=== PATIENT | female | born 1970 | race Caucasian/White ===

== ENCOUNTER 2018-02-12 12:33 | Inpatient (IN) | payer MEDICAID ==
[2018-02-12] MEDS ORDERED: Sodium Chloride 0.9% 1,000 ML IV STA ×2 (13:33→14:51)
[2018-02-12 14:15] LABS: VENOUS BLOOD GAS BASE EXCESS 0.6 mmol/L (0.0-2.0); VENOUS BLOOD GAS PCO2 47 mmHg (40-60); VENOUS BLOOD GAS PO2 36 mm/Hg (30-55); VENOUS BLOOD PH 7.36 (7.32-7.43)
--- NOTE | 2018-02-12 14:27 | ED PDOC ---
HPI: Psych/Substance Abuse Time Seen by Provider: 02/12/18 12:55 Chief Complaint (Provider): Overdose History Per: Patient History/Exam Limitations: no limitations Onset/Duration Of Symptoms: Hrs Current Symptoms Are (Timing): Still Present Associated Symptoms: Suicidal Thoughts, Suicidal Plan Additional Complaint(s): Caterina Ramey is a 47 year old female with no past medical history was brought to ER by EMS s/p suicide attempt prior to arrival. Patient is reported to have overdosed on Phenobarbital, and she admits to cocaine use yesterday. Patient is arousable with verbal stimuli. Other medical complaints are unobtainable due to patients refusal to answer questions. PMD: [facility] Past Medical History Reviewed: Historical Data, Nursing Documentation, Vital Signs Vital Signs: Last Vital Signs Temp 97 F L 02/12/18 12:38 Pulse 90 02/12/18 13:04 Resp 14 02/12/18 13:04 BP 123/78 02/12/18 13:04 Pulse Ox 99 02/12/18 13:04 - Medical History PMH: Bipolar Disorder, Depression, Diabetes, HTN, Hypercholesterolemia, Seizures Denies: Chronic Kidney Disease - Surgical History Surgical History: No Surg Hx - Family History Family History: States: Unknown Family Hx - Social History Drugs: Cocaine - Immunization History Hx Tetanus Toxoid Vaccination: No Hx Influenza Vaccination: No Hx Pneumococcal Vaccination: No - Home Medications Home Medications: Ambulatory Orders Medication Instructions Recorded Clonazepam [Klonopin] 1 mg PO Q8 08/29/16 Insulin Lispro [Humalog (Insulin 5 unit SQ BID 08/29/16 Lispro)] QUEtiapine [SEROquel XR] 300 mg PO HS 08/29/16 Albuterol 0.083% [Albuterol 0.083% 3 ml IH Q6 PRN 02/12/18 Inhal Geovanna (2.5 mg/3 ml) UD] Albuterol HFA [Ventolin HFA 90 1 puff IH Q4 PRN 02/12/18 mcg/actuation (8 g)] Amitriptyline HCl [Amitriptyline 100 mg PO HS 02/12/18 HCl] Buprenorphine HCl/Naloxone HCl 1 film SL DAILY 02/12/18 [Suboxone 4 mg-1 mg Sl Film] Docusate [Colace] 100 mg PO Q12 02/12/18 Ergocalciferol (Vitamin D2) 50,000 unit PO QWK 02/12/18 [Vitamin D2] Losartan [Cozaar] 100 mg PO DAILY 02/12/18 Naproxen [Naprosyn] 500 mg PO Q12 PRN 02/12/18 [place]-3 Fatty Acids [[place]-3] 1 cap PO DAILY 02/12/18 Phenobarbital [PHENobarbital Tab] 32.4 mg PO Q8 02/12/18 Polyethylene Glycol 3350 [Miralax] 17 gm PO DAILY 02/12/18 Zolpidem [Ambien] 10 mg PO HS 02/12/18 traZODone [Desyrel] 50 mg PO HS 02/12/18 - Allergies Allergies/Adverse Reactions: Allergies Allergy/AdvReac Type Severity Reaction Status Date / Time latex AdvReac RASH Verified 02/12/18 12:38 Review of Systems Review Of Systems: ROS cannot be obtained secondary to pt's inabilty to answer questions. (patient refuses to answer questions) Physical Exam - Reviewed Nursing Documentation Reviewed: Yes Vital Signs Reviewed: Yes - Physical Exam Appears: Positive for: Non-toxic, No Acute Distress Head Exam: Positive for: ATRAUMATIC, NORMAL INSPECTION, NORMOCEPHALIC Skin: Positive for: Normal Color, Warm, Dry Eye Exam: Positive for: EOMI, Normal appearance, PERRL Neck: Positive for: Normal, Painless ROM, Supple Cardiovascular/Chest: Positive for: Regular Rate, Rhythm. Negative for: Murmur Respiratory: Positive for: Normal Breath Sounds. Negative for: Respiratory Distress Gastrointestinal/Abdominal: Positive for: Normal Exam, Soft. Negative for: Tenderness Back: Positive for: Normal Inspection. Negative for: L CVA Tenderness, R CVA Tenderness, Vertebral Tenderness Extremity: Positive for: Normal ROM. Negative for: Pedal Edema, Deformity Neurologic/Psych: Positive for: Alert, Oriented, Other (arousable ). Negative for: Motor/Sensory Deficits - Laboratory Results Result Diagrams: 02/12/18 22:03 02/12/18 22:03 - ECG Interpretation Of ECG: NSR @ 88, no ST-T changes. O2 Sat by Pulse Oximetry: 99 (RA) Pulse Ox Interpretation: Normal Medical Decision Making Medical Decision Making: Time: 14:05 Plan: --VBG --EKG --Acetaminophen --Alcohol Serum --CMP --Drug Screen --HCG Qualitative Serum --Salicylate --CBC --PTT --Coag --CXR --Phenobarbital lab --IV Fluids --Urinalysis Patient is arousable in ER and responsive to to verbal stimuli though is not cooperative in answering many questions. Accession No. : [id number] Patient Name / ID : CONNER RUBIO / [id number] Exam Date : 02/12/2018 13:28:18 ( Approved ) Study Comment : Sex / Age : F / 47Y Creator : Med Kong MD Dictator : Med Kong MD Heel Lift Gouger : Nca Certified Concierge : Med Kong MD Approver2 : Report Date : 02/12/2018 14:31:44 My Comment : PROCEDURE: CHEST RADIOGRAPH, 1 VIEW HISTORY: OD COMPARISON: None available. FINDINGS: LUNGS: Clear. PLEURA: No pneumothorax or pleural fluid seen. CARDIOVASCULAR: Normal. OSSEOUS STRUCTURES: No significant abnormalities. VISUALIZED UPPER ABDOMEN: Normal. OTHER FINDINGS: None. IMPRESSION: No active disease. Scribe Attestation: Documented by Malaika Cee, acting as a scribe for Chanda Redmond MD. Provider Scribe Attestation: All medical record entries made by the Scribe were at my direction and personally dictated by me. I have reviewed the chart and agree that the record accurately reflects my personal performance of the history, physical exam, medical decision making, and the department course for this patient. I have also personally directed, reviewed, and agree with the discharge instructions and disposition. Disposition - Clinical Impression Clinical Impression: Suicide attempt, Intentional phenobarbital overdose, Diabetes mellitus with hyperglycemia, UTI (urinary tract infection), Bipolar 1 disorder - Disposition Disposition: Transfer of Care Disposition Time: 15:00 Condition: STABLE Patient Signed Over To: Royal Engle
--- NOTE | 2018-02-12 14:33 | RAD ---
PROCEDURE: CHEST RADIOGRAPH, 1 VIEW HISTORY: OD COMPARISON: None available. FINDINGS: LUNGS: Clear. PLEURA: No pneumothorax or pleural fluid seen. CARDIOVASCULAR: Normal. OSSEOUS STRUCTURES: No significant abnormalities. VISUALIZED UPPER ABDOMEN: Normal. OTHER FINDINGS: None. IMPRESSION: No active disease.
[2018-02-12 14:42] LABS: BASO # 0.1 K/uL (0.0-0.2); BASO % 0.5 % (0.0-2.0); EOS # 0.5 K/uL (0.0-0.7); HEMOGLOBIN 14.8 g/dL (12.0-16.0); LYMPH # 3.3 K/uL (1.0-4.3); LYMPH % 18.3 % (20.0-40.0); MEAN CORPUSCULAR HEMOGLOBIN 32.5 pg (27.0-31.0); MEAN CORPUSCULAR HGB CONC 33.8 g/dL (33.0-37.0); MEAN PLATELET VOLUME 10.2 fl (7.2-11.7); MONO % 5.8 % (0.0-10.0); NEUT # 12.9 K/uL (1.8-7.0); NEUT % 72.4 % (50.0-75.0); RBC 4.56 Mil/uL (3.80-5.20); RED CELL DISTRIBUTION WIDTH 13.3 % (11.5-14.5); WHITE BLOOD COUNT 17.9 K/uL (4.8-10.8)
--- NOTE | 2018-02-12 14:47 | CARD ---
APPROVED REPORT EKG Measurement Heart [id number] <Conclusion> Normal sinus rhythm Possible Left atrial enlargement Borderline ECG
[2018-02-12 14:49] LABS: ALB/GLOB RATIO 0.9 (1.0-2.1); ALBUMIN 3.7 g/dL (3.5-5.0); ALT/SGPT 15 U/L (9-52); AST/SGOT 30 U/L (14-36); BLOOD UREA NITROGEN 16 mg/dl (7-17); CALCIUM 9.3 mg/dL (8.4-10.2); GFR AFRICAN-AMERICAN > 60; GFR NON-AFRICAN AMERICAN > 60
[2018-02-12 14:58] LABS: PROTHROMBIN TIME 10.6 Seconds (9.8-13.1)
[2018-02-12] MEDS ORDERED: Insulin Regular 100 units/ml IV STA ×2 (15:13→17:17)
[2018-02-12 15:19] LABS: ACETAMINOPHEN < 10.0 ug/ml (10.0-30.0); SALICYLATE < 1.0 mg/dl
--- NOTE | 2018-02-12 16:04 | ED PDOC ---
- Laboratory Results Result Diagrams: 02/12/18 22:03 02/12/18 22:03 - ECG O2 Sat by Pulse Oximetry: 99 (RA) Pulse Ox Interpretation: Normal Medical Decision Making Medical Decision Makin:00 Patient was signed out to me by Dr. Redmond pending medical clearance, reevaluation, and crisis evaluation. 16:30 Patient was evaluated by crisis evaluation, who recommended a JCMS screen. Patient is not cooperative for treatment in the ER and is actively suicidal. Will administer antipsychotic medications for acute psychosis. Patient is still pending clearance. 2053 I discussed the case as follow up with [facility] agent on case who recommends symptomatic care and no further observation needed if patient has no symptoms. Patient is currently not symptomatic for phenobarbital overdose. She does take it as RX medication. 2217 Vital signs are stable. Labs reviewed. In my opinion there are no current acute medical conditions that contraindicate the placement of this patient in a psychiatric unit. Scribe Attestation: Documented by Malaika Cee, acting as a scribe for Royal Engle MD. Provider Scribe Attestation: All medical record entries made by the Scribe were at my direction and personally dictated by me. I have reviewed the chart and agree that the record accurately reflects my personal performance of the history, physical exam, medical decision making, and the department course for this patient. I have also personally directed, reviewed, and agree with the discharge instructions and disposition. Disposition Counseled Patient/Family Regarding: Studies Performed, Diagnosis - Clinical Impression Clinical Impression: Suicide attempt, Intentional phenobarbital overdose, Diabetes mellitus with hyperglycemia, UTI (urinary tract infection), Bipolar 1 disorder - POA Present On Arrival: Poor Glycemic Control - Disposition Disposition: Admitted as In-Patient Disposition Time: 23:30 Condition: FAIR
[2018-02-12 16:20] LABS: SQUAMOUS EPITHIAL 1 /hpf (0-5); URINE BACTERIA RARE (<OCC); URINE BILIRUBIN NEGATIVE (NEGATIVE); URINE BLOOD SMALL (NEGATIVE); URINE CLARITY CLEAR (Clear); URINE COLOR YELLOW (YELLOW); URINE GLUCOSE (UA) >=500 mg/dL (Normal); URINE LEUKOCYTE ESTERASE TRACE Leu/uL (Negative); URINE PROTEIN 100 mg/dL (NEGATIVE); URINE UROBILINOGEN 0.2-1.0 mg/dL (0.2-1.0)
[2018-02-12 16:32] LABS: BARBITURATES, UR POSITIVE (NEGATIVE); BENZODIAZEPINES, UR NEGATIVE (NEGATIVE); OPIATES, UR NEGATIVE (NEGATIVE); PHENCYCLIDINE, UR NEGATIVE (NEGATIVE)
[2018-02-12] MEDS ORDERED: Insulin Regular 100 units/ml SC STA (17:16)
[2018-02-12] MEDS ORDERED: Insulin Regular 100 units/ml ONE (17:24)
[2018-02-12 22:11] LABS: MEAN CELL VOLUME 96.2 fl (81.0-99.0); MEAN CORPUSCULAR HEMOGLOBIN 32.7 pg (27.0-31.0); RBC 4.28 Mil/uL (3.80-5.20); RED CELL DISTRIBUTION WIDTH 13.1 % (11.5-14.5); WHITE BLOOD COUNT 15.8 K/uL (4.8-10.8)
[2018-02-12 22:21] LABS: BLOOD UREA NITROGEN 13 mg/dl (7-17); CALCIUM 8.5 mg/dL (8.4-10.2); GFR AFRICAN-AMERICAN > 60; GFR NON-AFRICAN AMERICAN > 60
[2018-02-13] MEDS ORDERED: Magnesium Hydroxide Susp 30 ml UD PO PRN (01:05)
[2018-02-13] MEDS ORDERED: DiphenhydrAMINE 50 mg/ml Inj IM PRN (01:05)
[2018-02-13] MEDS ORDERED: Alum-Mag Hydrox-Simethicone Susp (30 mL) PO PRN (01:05)
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
[2018-02-13 11:02] LABS: T4 5.59 ug/dl (5.5-11.0)
[2018-02-13 12:31] VITALS: O2SAT 99
[2018-02-13] MEDS ORDERED: Albuterol HFA 90 mcg/actuation (8 g) IH PRN (14:32)
[2018-02-13] MEDS ORDERED: Albuterol 0.083% Inhal Sol (2.5 mg/3 mL) UD IH PRN (14:32)
[2018-02-13] MEDS ORDERED: Ergocalciferol 50,000 Intl Units Cap PO SCH (14:45)
[2018-02-13] MEDS: Insulin Regular 100 units/ml SC SCH ×2 (15:12→17:10)
[2018-02-13] MEDS ORDERED: Insulin Lispro (humaLOG) 100 Units/ml Inj SC SCH (17:00)
--- NOTE | 2018-02-13 17:08 | PCM.PSYCH ---
Initial Psychiatric Evaluation - Initial Psychiatric Evaluation Type of Admission: Voluntary Legal Status: Capacity Chief Complaint (in patient's own words): I stopped taking my medications so I became very depressed Patient's Reaction to Hospitalization: pt requested help History of Present Illness and Precipitating Events: pt is 47 ys old female with previous diagnosis of bipolar disorder since age 26 and polysubstance use disorder pt reported has not been compliant with medications, started feeling depressed and having suicidal ideations, pt attempted to overdose on barbiturates then was stopped by , and brought to ER pt reported depressed mood , low energy , episodes of irritability denied any current suicidal or homicidal ideations on unit pt reported she has been on suboxone maintenance, urine toxicology is negative for opiates, positive for cocaine barbiturates and cannabis Current Medications: Active Medications Generic Name Dose Route Start Last Admin Trade Name Freq PRN Reason Stop Dose Admin Acetaminophen 650 mg 02/13/18 01:05 Tylenol 325mg Tab PO Q4 PRN pain level 4-7 Al Hydrox/Mg Hydrox/Simethicone 30 ml 02/13/18 01:05 Maalox Plus 30 Ml PO Q4 PRN Dyspepsia Albuterol 1 puff 02/13/18 14:32 Ventolin Hfa 90 Mcg/Actuation (8 G) IH Q4 PRN Shortness of Breath Albuterol Sulfate 2.5 mg 02/13/18 14:32 Albuterol 0.083% Inhal Geovanna (2.5 Mg/3 Ml) Ud IH Q6 PRN Shortness of Breath Clonidine HCl 0.1 mg 02/13/18 13:20 Catapres PO Q8 PRN Opiate reversal Diphenhydramine HCl 50 mg 02/13/18 01:05 Benadryl IM Q6 PRN Extrapyramidal S/S Unable PO Diphenhydramine HCl 50 mg 02/13/18 01:05 Benadryl PO Q6 PRN Extrapyramidal Symptoms Diphenhydramine HCl 50 mg 02/13/18 01:08 Benadryl PO HS PRN Sleep Docusate Sodium 100 mg 02/13/18 21:00 Colace PO Q12 RINKU Ergocalciferol 1 cap 02/13/18 14:45 Drisdol 50,000 Intl Units Cap PO QWK RINKU Gabapentin 100 mg 02/13/18 13:00 02/13/18 13:10 Neurontin PO 100 mg TID RINKU Administration Haloperidol 5 mg 02/13/18 01:05 Haldol PO Q4 PRN Agitation Haloperidol Lactate 5 mg 02/13/18 01:05 Haldol IM Q4 PRN Agitation, Unable to Take PO Insulin Human Lispro 5 units 02/13/18 17:00 Humalog SC BID [facility] Insulin Human Regular 5 units 02/13/18 09:00 02/13/18 15:12 Humulin R SC 5 u BID [facility] Administration Lorazepam 2 mg 02/13/18 01:05 Ativan IM Q4 PRN Anxiety/Agitation,Unable PO Lorazepam 1 mg 02/13/18 12:42 Ativan PO TID PRN Anxiety Losartan Potassium 100 mg 02/14/18 09:00 Cozaar PO DAILY [facility] Magnesium Hydroxide 30 ml 02/13/18 01:05 Milk Of Magnesia PO HS PRN Constipation Nitrofurantoin Macrocrystals 100 mg 02/12/18 21:00 02/13/18 09:10 Macrobid PO 100 mg Q12 [facility] Administration Protocol [id number] Ethyl Esters 1 gm 02/14/18 09:00 Lovaza PO DAILY [facility] Quetiapine Fumarate 50 mg 02/13/18 17:00 Seroquel PO BID [facility] Quetiapine Fumarate 200 mg 02/13/18 22:00 Seroquel PO HS [facility] Past Psychiatric History - Past Psychiatric History Explanation of prior treatment: multiple inpatient hospitalizations Pertinent Medical Hx (Current Medical&Sleep Prob, Allergies): Allergies Allergy/AdvReac Type Severity Reaction Status Date / Time latex AdvReac RASH Verified 02/12/18 12:38 Clonazepam [Klonopin] 1 mg PO Q8 08/29/16 Insulin Lispro [Humalog (Insulin Lispro)] 5 unit SQ BID 08/29/16 QUEtiapine [SEROquel XR] 300 mg PO HS 08/29/16 Albuterol 0.083% [Albuterol 0.083% Inhal Geovanna (2.5 mg/3 ml) UD] 3 ml IH Q6 PRN Albuterol HFA [Ventolin HFA 90 mcg/actuation (8 g)] 1 puff IH Q4 PRN 02/12/18 Amitriptyline HCl [Amitriptyline HCl] 100 mg PO HS 02/12/18 Buprenorphine HCl/Naloxone HCl [Suboxone 4 mg-1 mg Sl Film] 1 film SL DAILY Docusate [Colace] 100 mg PO Q12 02/12/18 Ergocalciferol (Vitamin D2) [Vitamin D2] 50,000 unit PO QWK 02/12/18 Losartan [Cozaar] 100 mg PO DAILY 02/12/18 Naproxen [Naprosyn] 500 mg PO Q12 PRN 02/12/18 [place]-3 Fatty Acids [[place]-3] 1 cap PO DAILY 02/12/18 Phenobarbital [PHENobarbital Tab] 32.4 mg PO Q8 02/12/18 Polyethylene Glycol 3350 [Miralax] 17 gm PO DAILY 02/12/18 Zolpidem [Ambien] 10 mg PO HS 02/12/18 traZODone [Desyrel] 50 mg PO HS 02/12/18 Mental Status Examination - Personal Presentation Personal Presentation: Looks older than stated age - Affect Affect: Constricted, Depressed - Motor Activity Motor Activity: Psychomotor Agitation - Reliability in Providing Information Reliability in Providing Information: Poor, due to alteration in thoughts, Poor , due to altered mood - Speech Speech: Relevant - Mood Mood: Depressed, Anxious - Formal Thought Process Formal Thought Process: Circumstantial - Obsessions/Compulsions Obsessions: No Compulsions: No - Cognitive Functions Orientation: Person, Place Sensorium: Alert Attention/Concentration: Attentive Abstract Thinking: Mobile Judgement: Imparied, as evidence by: Poor judgement, Imparied, as evidence by: Lack of insight into illness - Risk Risk: Diminished functioning - Strength & Assets Inventory Strength & Assets Inventory: Life experience - Limitations Additional comments: non compliance DSM 5 DX - DSM 5 DSM 5 Diagnosis: bipolar I disorder mixed severe without psychotic features opiate use in remission with maintenance treatment benzo use disorder cannabis use disorder cocaine use disorder - Recommended/Plan of Treatment Treatment Recommendations and Plan of Treatment: start ativan 1mg tid and monitor pt for symptoms and signs of barbiturate withdrawal start neurontin 200mg tid for possible withdrawal seizures clonidine prn for opiate withdrawal seroquel 50mg bid and 200mg qhs for mood stabilization monitor pt for psychopharmacological effects motivational and group therapy
--- NOTE | 2018-02-13 18:39 | CP.PCM.CON ---
History of Present Illness - History of Present Illness History of Present Illness: 47 yo female with history of DM2, Seizure DO, HTN and HLD admitted at the psyche unit because of worsening depression and suicidal ideation. Review of Systems - Review of Systems All systems: reviewed and no additional remarkable complaints except (aside from those mentioned above, 12 point system review were negative by me) Past Patient History - Past Medical History & Family History Past Medical History?: Yes - Past Social History Smoking Status: Heavy Smoker > 10 Cigarettes Daily Drugs: Cocaine - CARDIAC Hx Cardiac Disorders: Yes Hx Hypercholesterolemia: Yes Hx Hypertension: Yes - PULMONARY Hx Tuberculosis: No Other/Comment: smokes a pk/day for 20+yrs - NEUROLOGICAL Hx Neurological Disorder: Yes HX Cerebrovascular Accident: No Hx Seizures: Yes (last 10/2017) - HEENT Hx HEENT Problems: Yes Other/Comment: wears glasses - RENAL Hx Chronic Kidney Disease: No - ENDOCRINE/METABOLIC Hx Endocrine Disorders: Yes Hx Diabetes Mellitus Type 2: Yes - HEMATOLOGICAL/ONCOLOGICAL Hx Cancer: No Hx Human Immunodeficiency Virus (HIV): No - INTEGUMENTARY Hx Dermatological Problems: Yes Hx Marquez: Yes (both legs required skin graft 1995) - MUSCULOSKELETAL/RHEUMATOLOGICAL Hx Musculoskeletal Disorders: Yes Hx Back Pain: Yes (unknown cause) Hx Falls: No - GASTROINTESTINAL Hx Gastrointestinal Disorders: No Other/Comment: no teeth/no dentures - GENITOURINARY/GYNECOLOGICAL Hx Genitourinary Disorders: Yes Hx Sexually Transmitted Disorders: No Hx Urinary Tract Infection: Yes (dx'd in er dining room captain) - PSYCHIATRIC Hx Bipolar Disorder: Yes Hx Substance Use: Yes (mj daily, used cocaine dining room captain) - SURGICAL HISTORY Hx Surgeries: Yes (SEE COMMENT) Other/Comment: VULVAR ABSCESS SX 08/23/16,. BURN GRAFTS - ANESTHESIA Hx Anesthesia: Yes Hx Anesthesia Reactions: No Meds Allergies/Adverse Reactions: Allergies Allergy/AdvReac Type Severity Reaction Status Date / Time latex AdvReac RASH Verified 02/12/18 12:38 - Medications Medications: Current Medications Acetaminophen (Tylenol 325mg Tab) 650 mg PO Q4 PRN PRN Reason: pain level 4-7 Al Hydrox/Mg Hydrox/Simethicone (Maalox Plus 30 Ml) 30 ml PO Q4 PRN PRN Reason: Dyspepsia Albuterol (Ventolin Hfa 90 Mcg/Actuation (8 G)) 1 puff IH Q4 PRN PRN Reason: Shortness of Breath Albuterol Sulfate (Albuterol 0.083% Inhal Geovanna (2.5 Mg/3 Ml) Ud) 2.5 mg IH Q6 PRN PRN Reason: Shortness of Breath Clonidine HCl (Catapres) 0.1 mg PO Q8 PRN PRN Reason: Opiate reversal Diphenhydramine HCl (Benadryl) 50 mg IM Q6 PRN PRN Reason: Extrapyramidal S/S Unable PO Diphenhydramine HCl (Benadryl) 50 mg PO Q6 PRN PRN Reason: Extrapyramidal Symptoms Diphenhydramine HCl (Benadryl) 50 mg PO HS PRN PRN Reason: Sleep Docusate Sodium (Colace) 100 mg PO Q12 [facility] Ergocalciferol (Drisdol 50,000 Intl Units Cap) 1 cap PO QWK [facility] Gabapentin (Neurontin) 200 mg PO TID [facility] Haloperidol (Haldol) 5 mg PO Q4 PRN PRN Reason: Agitation Haloperidol Lactate (Haldol) 5 mg IM Q4 PRN PRN Reason: Agitation, Unable to Take PO Insulin Human Lispro (Humalog) 5 units SC BID [facility] Last Admin: 02/13/18 17:10 Dose: 5 u Insulin Human Regular (Humulin R) 5 units SC BID [facility] Last Admin: 02/13/18 17:10 Dose: Not Given Lorazepam (Ativan) 2 mg IM Q4 PRN PRN Reason: Anxiety/Agitation,Unable PO Lorazepam (Ativan) 1 mg PO TID PRN PRN Reason: Anxiety Lorazepam (Ativan) 1 mg PO TID [facility] Last Admin: 02/13/18 17:09 Dose: 1 mg Losartan Potassium (Cozaar) 100 mg PO DAILY [facility] Magnesium Hydroxide (Milk Of Magnesia) 30 ml PO HS PRN PRN Reason: Constipation Nitrofurantoin Macrocrystals (Macrobid) 100 mg PO Q12 [facility] PRN Reason: Protocol Last Admin: 02/13/18 09:10 Dose: 100 mg [id number] Ethyl Esters (Lovaza) 1 gm PO DAILY [facility] Quetiapine Fumarate (Seroquel) 50 mg PO BID [facility] Last Admin: 02/13/18 17:20 Dose: 50 mg Quetiapine Fumarate (Seroquel) 200 mg PO HS [facility] Physical Exam - Constitutional Appears: No Acute Distress - Head Exam Head Exam: ATRAUMATIC - Eye Exam Eye Exam: absent: Scleral icterus - ENT Exam ENT Exam: Mucous Membranes Moist - Neck Exam Neck exam: Negative for: Meningismus - Respiratory Exam Respiratory Exam: absent: Rales, Rhonchi, Wheezes, Respiratory Distress - Cardiovascular Exam Cardiovascular Exam: REGULAR RHYTHM, +S1, +S2 - GI/Abdominal Exam GI & Abdominal Exam: Soft. absent: Tenderness - Rectal Exam Rectal Exam: Deferred - Extremities Exam Extremities exam: Negative for: calf tenderness, pedal edema - Neurological Exam Neurological exam: Alert, Oriented x3 - Psychiatric Exam Psychiatric exam: Normal Affect - Skin Skin Exam: Dry, Intact Results - Vital Signs Recent Vital Signs: Last Vital Signs Temp 97.3 F L 02/13/18 09:00 Pulse 86 02/13/18 09:09 Resp 20 02/13/18 09:00 BP 142/89 02/13/18 09:09 Pulse Ox 99 02/13/18 12:30 - Labs Result Diagrams: 02/12/18 22:03 02/12/18 22:03 Labs: Laboratory Results - last 24 hr 02/12/18 02/12/18 02/12/18 14:27 17:21 18:47 WBC RBC Hgb Hct MCV MCH MCHC RDW Plt Count Sodium Potassium Chloride Carbon Dioxide Anion Gap BUN Creatinine Est GFR ( Amer) Est GFR (Non-Af Amer) POC Glucose (mg/dL) 177 H Random Glucose Hemoglobin A1c Calcium Triglycerides Cholesterol LDL Cholesterol Direct HDL Cholesterol Thyroxine (T4) TSH 3rd Generation Phenobarbital 44.5 H 47.2 H RPR 02/12/18 02/12/18 02/13/18 22:03 22:03 00:44 WBC 15.8 H RBC 4.28 Hgb 14.0 Hct 41.1 MCV 96.2 MCH 32.7 H MCHC 34.0 RDW 13.1 Plt Count 208 Sodium 140 Potassium 3.8 Chloride 104 Carbon Dioxide 24 Anion Gap 16 BUN 13 Creatinine 0.6 L Est GFR ( Amer) > 60 Est GFR (Non-Af Amer) > 60 POC Glucose (mg/dL) 190 H Random Glucose 140 H Hemoglobin A1c Calcium 8.5 Triglycerides Cholesterol LDL Cholesterol Direct HDL Cholesterol Thyroxine (T4) TSH 3rd Generation Phenobarbital RPR 02/13/18 02/13/1802/13/18 06:03 10:12 10:12 WBC RBC Hgb Hct MCV MCH MCHC RDW Plt Count Sodium Potassium Chloride Carbon Dioxide Anion Gap BUN Creatinine Est GFR ( Amer) Est GFR (Non-Af Amer) POC Glucose (mg/dL) 302 H Random Glucose Hemoglobin A1c 12.6 H Calcium Triglycerides 316 H Cholesterol 259 H LDL Cholesterol Direct 140 H HDL Cholesterol 57 Thyroxine (T4) 5.59 TSH 3rd Generation 0.58 Phenobarbital RPR 02/13/18 02/13/18 10:12 17:02 WBC RBC Hgb Hct MCV MCH MCHC RDW Plt Count Sodium Potassium Chloride Carbon Dioxide Anion Gap BUN Creatinine Est GFR ( Amer) Est GFR (Non-Af Amer) POC Glucose (mg/dL) 196 H Random Glucose Hemoglobin A1c Calcium Triglycerides Cholesterol LDL Cholesterol Direct HDL Cholesterol Thyroxine (T4) TSH 3rd Generation Phenobarbital RPR Nonreactive Assessment & Plan (1) Depression Status: Acute Comment: psyche is managing (2) DM2 (diabetes mellitus, type 2) Status: Chronic Comment: BS relatively controlled. accuchek ACHS with Lispro coverage. Metformin 1000mg PO BID (3) Seizure disorder Status: Chronic Comment: continue Phenobarbital 32.4mg PO q 8hrs and Klonopin 1mg PO q 8hrs (4) HTN (hypertension) Status: Chronic Comment: BP stable. continue Losartan 100mg PO daily
[2018-02-13] MEDS: Insulin Lispro (humaLOG) 100 Units/ml Inj SC SCH (21:11)
--- NOTE | 2018-02-14 01:14 | CP.PCM.PN ---
Subjective - Date & Time of Evaluation Date of Evaluation: 02/14/18 Time of Evaluation: 00:55 - Subjective Subjective: This patient became very agitated, refusing to follow directions and throwing table to the floor and becoming very combative. She was given Benadryl and Haldol but continued with this behaviour. Patient seen already in restraints, awake but calm - Restraints are well placed and not tight I&P #. Agressive Behaviour - Haldol - Benadryl - Fore point restraints - Place in seclusion with sitter - Re evaluate in 4 hours Hai Portillo MD Objective - Vital Signs/Intake and Output Vital Signs (last 24 hours): Temp Pulse Resp BP Pulse Ox 97.3 F L 86 20 142/89 99 02/13/18 09:00 02/13/18 09:09 02/13/18 09:00 02/13/18 09:09 02/13/18 12:30 - Medications Medications: Current Medications Acetaminophen (Tylenol 325mg Tab) 650 mg PO Q4 PRN PRN Reason: pain level 4-7 Al Hydrox/Mg Hydrox/Simethicone (Maalox Plus 30 Ml) 30 ml PO Q4 PRN PRN Reason: Dyspepsia Albuterol (Ventolin Hfa 90 Mcg/Actuation (8 G)) 1 puff IH Q4 PRN PRN Reason: Shortness of Breath Albuterol Sulfate (Albuterol 0.083% Inhal Geovanna (2.5 Mg/3 Ml) Ud) 2.5 mg IH Q6 PRN PRN Reason: Shortness of Breath Clonidine HCl (Catapres) 0.1 mg PO Q8 PRN PRN Reason: Opiate reversal Diphenhydramine HCl (Benadryl) 50 mg IM Q6 PRN PRN Reason: Extrapyramidal S/S Unable PO Diphenhydramine HCl (Benadryl) 50 mg PO Q6 PRN PRN Reason: Extrapyramidal Symptoms Diphenhydramine HCl (Benadryl) 50 mg PO HS PRN PRN Reason: Sleep Last Admin: 02/14/18 00:05 Dose: 50 mg Docusate Sodium (Colace) 100 mg PO Q12 [facility] Last Admin: 02/13/18 21:11 Dose: 100 mg Ergocalciferol (Drisdol 50,000 Intl Units Cap) 1 cap PO QWK [facility] Gabapentin (Neurontin) 200 mg PO TID [facility] Haloperidol (Haldol) 5 mg PO Q4 PRN PRN Reason: Agitation Haloperidol Lactate (Haldol) 5 mg IM Q4 PRN PRN Reason: Agitation, Unable to Take PO Last Admin: 02/14/18 00:45 Dose: 5 mg Insulin Human Lispro (Humalog) 0 units SC ACHS [facility] PRN Reason: Protocol Last Admin: 02/13/18 21:11 Dose: Not Given Lorazepam (Ativan) 2 mg IM Q4 PRN PRN Reason: Anxiety/Agitation,Unable PO Last Admin: 02/14/18 00:45 Dose: 2 mg Lorazepam (Ativan) 1 mg PO TID PRN PRN Reason: Anxiety Lorazepam (Ativan) 1 mg PO TID [facility] Last Admin: 02/13/18 17:09 Dose: 1 mg Losartan Potassium (Cozaar) 100 mg PO DAILY [facility] Magnesium Hydroxide (Milk Of Magnesia) 30 ml PO HS PRN PRN Reason: Constipation Metformin HCl (Glucophage) 1,000 mg PO BIDWM [facility] Nitrofurantoin Macrocrystals (Macrobid) 100 mg PO Q12 [facility] PRN Reason: Protocol Last Admin: 02/13/18 21:11 Dose: 100 mg Wphpt-6-Aofl Ethyl Esters (Lovaza) 1 gm PO DAILY [facility] Quetiapine Fumarate (Seroquel) 50 mg PO BID [facility] Last Admin: 02/13/18 17:20 Dose: 50 mg Quetiapine Fumarate (Seroquel) 200 mg PO HS [facility] Last Admin: 02/13/18 21:11 Dose: 200 mg - Labs Labs: 02/12/18 22:03 02/12/18 22:03 PT 10.6 Seconds (9.8-13.1) 02/12/18 14:27 INR 1.0 (0.9-1.2) 02/12/18 14:27 APTT 28.0 Seconds (25.6-37.1) 02/12/18 14:27
[2018-02-14] MEDS: Omega-3-Acid Ethyl Esters 1 GM Cap PO SCH (09:32)
[2018-02-14] MEDS: Insulin Lispro (humaLOG) 100 Units/ml Inj SC SCH ×4 (12:32→21:41)
--- NOTE | 2018-02-14 14:28 | PCM.PYCHPN ---
Psychiatric Progress Note - Psychiatric Progress Note Patient seen today, length of contact: pr is seen and evaluated Patient Chief Complaint: pt has remained somewhat guarded and still has depression and has poor insight and wants to be d/c.no side effects to meds . Mental Status Examination - Cognitive Function Orientation: Person, Place - Mood Mood: Depressed, Anxious - Affect Affect: Constricted, Depressed - Formal Thought Process Formal Thought Process: Circumstantial - Homicidal Ideation Homicidal Ideation: No Goal/Treatment Plan - Goal/Treatment Plan Progress Toward Problem(s) and Goals/Treatment Plan: will continue to titrate seroquel to stabilize the pt and engage pt in therapy and groups.
[2018-02-15] MEDS: Omega-3-Acid Ethyl Esters 1 GM Cap PO SCH (08:18)
[2018-02-15] MEDS: Insulin Lispro (humaLOG) 100 Units/ml Inj SC SCH ×4 (08:21→21:36)
[2018-02-16] MEDS: Insulin Lispro (humaLOG) 100 Units/ml Inj SC SCH ×4 (08:28→22:16)
[2018-02-16] MEDS: Omega-3-Acid Ethyl Esters 1 GM Cap PO SCH (08:45)
--- NOTE | 2018-02-16 15:37 | PCM.PYCHPN ---
Psychiatric Progress Note - Psychiatric Progress Note Patient seen today, length of contact: pr is seen and evaluated Patient Chief Complaint: I am willing to join the [facility] outpatient program Problems Identified/Issues Discussed: pt evaluated, calmer, compliant with medicaions and treatment discussed with pt possibility of being started on opiate maintenance treatment on discharge, as suboxone, pt declined, pt agreed to join outpatient [facility] program no reported side effects of seroquel or neurontin, discussed increasing seroquel to 400mg as pt had an episode of poor impulse control yesterday pt denied any current suicidal or homicidal ideations denied perceptual disturbances Medical Problems: multiple inpatient hospitalizations DSM 5 Symptoms Update: bipolar disorder polysubstance use disorder Medication Change: Yes (increase seroquel) Medical Record Reviewed: Yes Mental Status Examination - Cognitive Function Orientation: Person, Place Memory: Intact Attention: WNL Concentration: WNL Association: WNL Fund of Knowledge: WN Decription of patient's judgement and insights: partial insight and fair judgement - Mood Mood: Depressed, Anxious - Affect Affect: Constricted, Depressed - Speech Speech: Appropriate - Formal Thought Process Formal Thought Process: Circumstantial Psychotic Thoughts and Behaviors: pt denied perceptual disturbances, non elicited - Suicidal Ideation Suicidal Ideation: No - Homicidal Ideation Homicidal Ideation: No Goal/Treatment Plan - Goal/Treatment Plan Need for Continued Stay: Severe depression anxiety, Discharge may exacerbated symptoms Progress Toward Problem(s) and Goals/Treatment Plan: pt at current mental status not danger to self or others, discontinue 1:1 precautions neurontin 200mg tid clonidine prn for opiate withdrawal seroquel 50mg bid and 300mg qhs for mood stabilization monitor pt for psychopharmacological effects motivational and group therapy
[2018-02-16 16:16] VITALS: RESP 20
[2018-02-16] MEDS ORDERED: QUEtiapine 300 MG TABLET PO SCH (22:00)
[2018-02-16] MEDS: Nystatin Ointment TOP SCH (22:04)
[2018-02-17] MEDS: Omega-3-Acid Ethyl Esters 1 GM Cap PO SCH (08:48)
[2018-02-17 08:51] VITALS: BP 146/95; PULSE 100
[2018-02-17] MEDS: Nystatin Ointment TOP SCH (08:53)
[2018-02-17] MEDS: Insulin Lispro (humaLOG) 100 Units/ml Inj SC SCH ×2 (08:55→12:52)
[2018-02-17] MEDS ORDERED: Nystatin Ointment TOP SCH (09:00)
[2018-02-17 09:08] VITALS: TEMP 98.1
--- NOTE | 2018-02-17 15:45 | PCM.PYCHDC ---
Mental Status Examination - Mental Status Examination Orientation: Person, Place, Situation Memory: Intact Mood: Neutral Speech: Appropriate Attention: WNL Concentration: WNL Association: WNL Fund of Knowledge: WNL Formal Thought Process: Circumstantial Description of patient's judgement and insight: partial insight and fair judgement Psychotic Thoughts and Behaviors: pt denied perceptual disturbances, non elicited Suicidal Ideation: No Current Homicidal Ideation?: No Discharge Summary - Discharge Note Reason for Hospitalization: pt requested help t is 47 ys old female with previous diagnosis of bipolar disorder since age 26 and polysubstance use disorder pt reported has not been compliant with medications, started feeling depressed and having suicidal ideations, pt attempted to overdose on barbiturates then was stopped by , and brought to ER pt reported depressed mood , low energy , episodes of irritability denied any current suicidal or homicidal ideations on unit pt reported she has been on suboxone maintenance, urine toxicology is negative for opiates, positive for cocaine barbiturates and cannabis Laboratory Data: Abnormal Lab Results 02/16/18 02/16/18 02/17/18 16:41 21:44 07:08 POC Glucose (mg/dL) 116 H 389 H 292 H Consultations:: List each consultation separately and include: 1. Reason for request. 2. Findings. 3. Follow-up Summary of Hospital Course include:: 1. Description of specific treatment plan utilized for patients during their course of treatmen. 2. Summarize the time- course for resolution of acute symptoms and/or regressed behaviors. 3. Describe issues identified and worked on during hospitalization. 4. Describe medication utilized. 5. Describe medical problems identified and treated. 6. Reassessment of suicide risk Summary of Hospital Course: pt on admission was started on seroquel, it was uptitrated to 300mg for mood stabilization pt also was placed on ativan 1mg tid and tapered down gradually for benzodiazepine withdrawal pt was compliant with medications, attended groups, no reported side effects gradually presented with brighter mood and more stable affect on discharge mental status was stable, pt denied suicidal or homicidal ideations denied perceptual disturbances follow up was arranged by psychotherapist social worker at [facility] outpatient program - Diagnosis (1) Bipolar 1 disorder Status: Acute - Final Diagnosis (DSM 5) Condition upon Discharge: STABLE 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 cannabis use disorder opiate use disorder bipolar disorder Disposition: HOME/ ROUTINE Follow-up Treatment Plan: pt at current mental status not danger to self or others, discontinue 1:1 precautions neurontin 200mg tid clonidine prn for opiate withdrawal seroquel 50mg bid and 300mg qhs for mood stabilization monitor pt for psychopharmacological effects motivational and group therapy Prescriptions/Medication Reconciliation: Gabapentin [Neurontin] 200 mg PO TID 30 Days #90 cap Nicotine 14 mg/24 hr [Nicoderm CQ] 1 patch TD DAILY 30 Days #30 patch Nystatin [Mycostatin Oint] 1 applic TOP TID 7 Days #1 tube QUEtiapine [SEROquel] 50 mg PO BID 30 Days #60 tab QUEtiapine [SEROquel] 300 mg PO HS 30 Days #30 tab - Antipsychotic Medications Pt discharged on 2 or more routine antipsychotic medications: No
== END 2018-02-17 12:58 | disposition home or self-care (01) | DRG 430 ==
LOC: H.ER 12:33 → H.ERHOLD 23:48 → H.PSYCH 02-13 01:00
PROVIDERS: ADMIT Psychiatry & Neurology Psychiatry; ATTEND Psychiatry & Neurology Psychiatry
PROC: HZ52ZZZ Individual Psychotherapy for Substance Abuse Treatment, Cognitive-Behavioral (ICD-10-PCS; principal; 2018-02-12)
PROC: GZHZZZZ Group Psychotherapy (ICD-10-PCS; 2018-02-12)
PROC: GZ58ZZZ Individual Psychotherapy, Cognitive-Behavioral (ICD-10-PCS; 2018-02-12)
DX: F31.63 Bipolar disorder, current episode mixed, severe, without psychotic features (principal); F14.14 Cocaine abuse with cocaine-induced mood disorder; E11.65 Type 2 diabetes mellitus with hyperglycemia; N39.0 Urinary tract infection, site not specified; F13.10 Sedative, hypnotic or anxiolytic abuse, uncomplicated; F12.90 Cannabis use, unspecified, uncomplicated; G40.909 Epilepsy, unspecified, not intractable, without status epilepticus; I10 Essential (primary) hypertension; E78.5 Hyperlipidemia, unspecified; E78.00 Pure hypercholesterolemia, unspecified; F17.210 Nicotine dependence, cigarettes, uncomplicated; Z78.1 Physical restraint status; Z91.14 Patient's other noncompliance with medication regimen; Z79.4 Long term (current) use of insulin